=== PATIENT | female | born 1980 | race Caucasian/White ===

== ENCOUNTER 2020-05-12 09:05 | Observation (INO) | payer MEDICAID ==
[2020-05-12] MEDS ORDERED: PREN-96 PO (10:02)
[2020-05-12 10:10] LABS: Basophils # (auto) 0 10 ^3/uL (0-0.2); Basophils % (auto) 0.2 % (0.0-2.0); Eosinophils # (auto) 0.1 10 ^3/uL (0-0.8); Eosinophils % (auto) 0.8 % (0.0-7.0); Hematocrit 33.1 % (36.0-46.0); Hemoglobin 11.3 g/dL (12.2-16.2); Lymphocytes # (auto) 2.3 10 ^3/uL (0.4-5.4); Lymphocytes % (auto) 16.3 % (10.0-50.0); Mean Corpuscular Hemoglobin 32.2 pg (28.0-32.0); Mean Corpuscular Hgb Conc. 34.3 g/dL (32.0-36.0); Mean Corpuscular Volume 93.7 fL (80.0-100.0); Monocytes # (auto) 0.7 10 ^3/uL (0-1.3); Monocytes % (auto) 4.7 % (0.0-12.0); Neutrophils # (auto) 10.9 10 ^3/uL (1.6-8.6); Red Blood Cells 3.53 10^6/uL (4.0-5.20); Red Cell Distribution Width 12.6 % (11.8-14.3); White Blood Cell 13.9 10^3/uL (4.4-10.8)
[2020-05-12 10:24] LABS: INR 0.92 (0.9-1.15); Partial Thromboplastin Time 23.9 sec (23.0-31.2)
[2020-05-12 10:44] LABS: Albumin 2.6 g/dL (3.4-5.0); Calcium 8.1 mg/dL (8.5-10.1); Potassium 3.6 mmol/L (3.5-5.1)
[2020-05-12 10:48] LABS: BUN/Creatinine Ratio 11.6; Bilirubin, Total 0.4 mg/dL (0.2-1.0); Total Protein 6.3 g/dL (6.4-8.2)
[2020-05-12 10:50] LABS: Urine Bacteria FEW /hpf (None Seen); Urine Blood Negative /uL (Negative); Urine Mucus FEW (None Seen); Urine Specific Gravity 1.016 (1.001-1.035); Urine WBC 3 /hpf (0 - 5)
[2020-05-12 11:14] LABS: Protein, Urine 17.4 mg/dL (0.0-11.9)
[2020-05-12 15:35] LABS: Amphetamine Screen, Urine NEGATIVE (NEGATIVE); Barbiturate Scree,Urine NEGATIVE (NEGATIVE); Benzodiazephine Screen, Urine NEGATIVE (NEGATIVE); Cannabinoid Screen, Urine POSITIVE (NEGATIVE); Cocaine Screen, Urine NEGATIVE (NEGATIVE); Opiate Scree,Urine NEGATIVE (NEGATIVE); Phencyclidine Screen, Urine NEGATIVE (NEGATIVE)
== END 2020-05-12 12:22 | disposition home or self-care (01) ==
LOC: LDRP 09:05
PROVIDERS: ADMIT Specialist; ATTEND Specialist
DX: O13.3 Gestational [pregnancy-induced] hypertension without significant proteinuria, third trimester (principal); Z3A.31 31 weeks gestation of pregnancy; Z79.899 Other long term (current) drug therapy
CPT/HCPCS: 36415; 59025; 80053; 80307; 81001; 81002; 82570; 84156; 84550; 85025; 85610; 85730; G0378

== ENCOUNTER 2020-05-14 09:55 | Observation (INO) | payer MEDICAID ==
[~2020-05-14 09:55] MED LIST: PREN-96 PO
[2020-05-14 11:50] LABS: Protein, Urine 12.1 mg/dL (0.0-11.9)
[2020-05-14 12:15] LABS: Creatinine Clearance, Urine 190.87 mL/min (75-115)
== END 2020-05-14 13:15 | disposition home or self-care (01) ==
LOC: LDRP 09:55
PROVIDERS: ADMIT Specialist; ATTEND Specialist
DX: O13.3 Gestational [pregnancy-induced] hypertension without significant proteinuria, third trimester (principal); Z3A.31 31 weeks gestation of pregnancy
CPT/HCPCS: 59025; 76818; 81002; 82575; 84156; G0378

== ENCOUNTER 2020-05-17 09:17 | Observation (INO) | payer MEDICAID | END 2020-05-17 10:55 | disposition home or self-care (01) | LOC: LDRP 09:17 | PROVIDERS: ADMIT Obstetrics & Gynecology; ATTEND Obstetrics & Gynecology | DX: O13.3 Gestational [pregnancy-induced] hypertension without significant proteinuria, third trimester (principal); O24.419 Gestational diabetes mellitus in pregnancy, unspecified control; O99.333 Smoking (tobacco) complicating pregnancy, third trimester; Z3A.31 31 weeks gestation of pregnancy | CPT/HCPCS: 59025; 76818; 81002; G0378 ==

== ENCOUNTER 2020-05-24 08:05 | Observation (INO) | payer MEDICAID | END 2020-05-24 10:00 | disposition home or self-care (01) | LOC: LDRP 08:05 | PROVIDERS: ADMIT Obstetrics & Gynecology; ATTEND Obstetrics & Gynecology | DX: O09.513 Supervision of elderly primigravida, third trimester (principal); O10.013 Pre-existing essential hypertension complicating pregnancy, third trimester; O99.333 Smoking (tobacco) complicating pregnancy, third trimester; F17.200 Nicotine dependence, unspecified, uncomplicated; Z3A.33 33 weeks gestation of pregnancy | CPT/HCPCS: 59025; 76818; 81002; G0378 ==

== ENCOUNTER 2020-05-31 07:46 | Observation (INO) | payer MEDICAID ==
[~2020-05-31] VITALS: Ht 172.7 cm; Wt 81.6 kg
[2020-06-11] MEDS ORDERED: LABETALOL HCL 200 MG TAB PO ONE (12:15)
[2020-06-11] MEDS: TERBUTALINE SULFATE 1 MG/ML 1ML VIAL SC SCH ×3 (12:19→14:20)
[2020-06-11 12:30] LABS: Basophils # (auto) 0 10 ^3/uL (0-0.2); Basophils % (auto) 0.3 % (0.0-2.0); Eosinophils # (auto) 0.1 10 ^3/uL (0-0.8); Eosinophils % (auto) 0.4 % (0.0-7.0); Hematocrit 33.1 % (36.0-46.0); Hemoglobin 11.5 g/dL (12.2-16.2); Lymphocytes % (auto) 15.8 % (10.0-50.0); Mean Corpuscular Hemoglobin 32.4 pg (28.0-32.0); Mean Corpuscular Hgb Conc. 34.7 g/dL (32.0-36.0); Mean Corpuscular Volume 93.4 fL (80.0-100.0); Monocytes # (auto) 0.6 10 ^3/uL (0-1.3); Monocytes % (auto) 4.6 % (0.0-12.0); Neutrophils % (auto) 78.9 % (37.0-80.0); Nucleated Red Blood Cells % 0.2 %; Red Blood Cells 3.55 10^6/uL (4.0-5.20); Red Cell Distribution Width 13.1 % (11.8-14.3); White Blood Cell 12.7 10^3/uL (4.4-10.8)
[2020-06-11 12:34] LABS: Urine Bacteria NONE SEEN /hpf (None Seen); Urine Blood Negative /uL (Negative); Urine Specific Gravity 1.015 (1.001-1.035); Urine WBC 6 /hpf (0 - 5)
[2020-06-11 13:01] LABS: Potassium 3.5 mmol/L (3.5-5.1)
[2020-06-11 13:05] LABS: INR 0.93 (0.9-1.15); Partial Thromboplastin Time 24.2 sec (23.0-31.2)
[2020-06-11 13:07] LABS: Albumin 2.7 g/dL (3.4-5.0); BUN/Creatinine Ratio 17.9; Bilirubin, Total 0.6 mg/dL (0.2-1.0); Calcium 8.4 mg/dL (8.5-10.1); Total Protein 6.4 g/dL (6.4-8.2); Uric Acid 3.4 mg/dL (2.6-6.0)
[2020-06-11 13:18] LABS: Amphetamine Screen, Urine NEGATIVE (NEGATIVE); Barbiturate Scree,Urine NEGATIVE (NEGATIVE); Benzodiazephine Screen, Urine NEGATIVE (NEGATIVE); Cannabinoid Screen, Urine POSITIVE (NEGATIVE); Cocaine Screen, Urine NEGATIVE (NEGATIVE)
[2020-06-11 13:26] LABS: Opiate Scree,Urine NEGATIVE (NEGATIVE); Phencyclidine Screen, Urine NEGATIVE (NEGATIVE)
[2020-06-11] MEDS ORDERED: BETAMETHASONE ACET (30mg/5ml) 5ml Vial 6mg/ml IM ONE (14:30)
[2020-06-11] MEDS ORDERED: NIFEdipine 10 MG CAP PO ONE (15:00)
[2020-06-11] MEDS ORDERED: NIF10C PO (18:12)
[2020-06-11] MEDS ORDERED: LABE100T39 PO (18:13)
[2020-06-12 07:06] LABS: RPR Non Reactive (Non Reactive)
== END 2020-06-11 18:59 | disposition home or self-care (01) ==
LOC: LDRP 06-11 10:21
PROVIDERS: ADMIT Specialist; ATTEND Specialist
DX: O13.3 Gestational [pregnancy-induced] hypertension without significant proteinuria, third trimester (principal); O99.333 Smoking (tobacco) complicating pregnancy, third trimester; F17.200 Nicotine dependence, unspecified, uncomplicated; O99.323 Drug use complicating pregnancy, third trimester; F15.10 Other stimulant abuse, uncomplicated; O09.523 Supervision of elderly multigravida, third trimester; O34.219 Maternal care for unspecified type scar from previous cesarean delivery; Z3A.35 35 weeks gestation of pregnancy
CPT/HCPCS: 36415; 59025; 76805; 76818; 80053; 80307; 81001; 81002; 84550; 85025; 85610; 85730; 86592; 94760; 96360; 96361; 96372; G0378; J0702; J3105

== ENCOUNTER 2020-06-12 16:27 | Observation (INO) | payer MEDICAID ==
[~2020-06-12 16:27] MED LIST changes: +LABE100T39 PO; +NIF10C PO
[2020-06-12] MEDS ORDERED: BETAMETHASONE ACET (30mg/5ml) 5ml Vial 6mg/ml IM ONE (16:45)
== END 2020-06-12 17:55 | disposition home or self-care (01) ==
LOC: LDRP 16:27
PROVIDERS: ADMIT Specialist; ATTEND Specialist
DX: O13.3 Gestational [pregnancy-induced] hypertension without significant proteinuria, third trimester (principal); Z3A.34 34 weeks gestation of pregnancy
CPT/HCPCS: 59025; 81002; 96372; G0378; J0702

== ENCOUNTER 2020-06-13 07:09 | Observation (INO) | payer MEDICAID ==
[~2020-06-13] VITALS: Ht 165.1 cm; Wt 81.6 kg
[2020-06-13 08:18] LABS: Protein, Urine 13.4 mg/dL (0.0-11.9)
[2020-06-13 08:22] LABS: Protein, Urine 13.8 mg/dL (0.0-11.9)
[2020-06-13 08:30] LABS: 24 Hr. Total Protein, Urine 241.2 mg/24 Hr (<149.1)
== END 2020-06-13 08:37 | disposition home or self-care (01) ==
LOC: LDRP 07:09
PROVIDERS: ADMIT Specialist; ATTEND Specialist
DX: O13.3 Gestational [pregnancy-induced] hypertension without significant proteinuria, third trimester (principal); Z3A.35 35 weeks gestation of pregnancy
CPT/HCPCS: 59025; 81002; 82570; 84156; G0378

== ENCOUNTER 2020-06-15 08:20 | Observation (INO) | payer MEDICAID ==
[~2020-06-15] VITALS: Ht 30.5 cm; Wt 0.5 kg
[2020-06-15 10:42] LABS: Basophils # (auto) 0 10 ^3/uL (0-0.2); Basophils % (auto) 0.2 % (0.0-2.0); Eosinophils # (auto) 0.1 10 ^3/uL (0-0.8); Eosinophils % (auto) 0.5 % (0.0-7.0); Hematocrit 30.6 % (36.0-46.0); Hemoglobin 10.5 g/dL (12.2-16.2); Lymphocytes % (auto) 20.4 % (10.0-50.0); Mean Corpuscular Hemoglobin 32.4 pg (28.0-32.0); Mean Corpuscular Hgb Conc. 34.3 g/dL (32.0-36.0); Mean Corpuscular Volume 94.3 fL (80.0-100.0); Monocytes % (auto) 6.7 % (0.0-12.0); Neutrophils # (auto) 10.7 10 ^3/uL (1.6-8.6); Neutrophils % (auto) 72.2 % (37.0-80.0); Platelet Count (auto) 237 10^3/uL (140-450); Red Blood Cells 3.25 10^6/uL (4.0-5.20); White Blood Cell 14.9 10^3/uL (4.4-10.8)
[2020-06-15 10:44] LABS: Urine Bacteria FEW /hpf (None Seen); Urine Blood Negative /uL (Negative); Urine Mucus FEW (None Seen); Urine Specific Gravity 1.028 (1.001-1.035); Urine WBC 44 /hpf (0 - 5)
[2020-06-15 11:02] LABS: Protein, Urine 38.3 mg/dL (0.0-11.9)
[2020-06-15 11:03] LABS: INR 0.95 (0.9-1.15); Partial Thromboplastin Time 23.1 sec (23.0-31.2)
[2020-06-15 11:05] LABS: Albumin 2.5 g/dL (3.4-5.0); BUN/Creatinine Ratio 10.2; Bilirubin, Total 0.4 mg/dL (0.2-1.0); Total Protein 5.8 g/dL (6.4-8.2)
[2020-06-15 11:24] LABS: Potassium 2.9 mmol/L (3.5-5.1)
[2020-06-15] MEDS ORDERED: POTASSIUM CHL 20MEQ/100ML 100 ML IV SCH ×2 (11:45→14:45)
[2020-06-15] MEDS ORDERED: POTASSIUM CHL 20 Meq TABLET PO ONE (11:45)
[2020-06-15] MEDS ORDERED: POTASSIUM CHL 20MEQ/100ML 100 ML IV ONE (15:00)
[2020-06-15] MEDS ORDERED: LABETALOL HCL 200 MG TAB PO ONE (16:03)
== END 2020-06-15 18:10 | disposition home or self-care (01) ==
LOC: LDRP 08:20
PROVIDERS: ADMIT Specialist; ATTEND Specialist
DX: O13.3 Gestational [pregnancy-induced] hypertension without significant proteinuria, third trimester (principal); O99.283 Endocrine, nutritional and metabolic diseases complicating pregnancy, third trimester; E87.6 Hypokalemia; O09.523 Supervision of elderly multigravida, third trimester; O60.03 Preterm labor without delivery, third trimester; Z79.899 Other long term (current) drug therapy; Z3A.36 36 weeks gestation of pregnancy
CPT/HCPCS: 36415; 59025; 76818; 80053; 81001; 81002; 82570; 84132; 84156; 84550; 85025; 85610; 85730; 96365; 96366; G0378; J3480; J7120

== ENCOUNTER 2020-06-18 08:14 | Observation (INO) | payer MEDICAID | END 2020-06-18 09:45 | disposition home or self-care (01) | LOC: LDRP 08:14 | PROVIDERS: ADMIT Obstetrics & Gynecology; ATTEND Obstetrics & Gynecology | DX: O40.3XX0 Polyhydramnios, third trimester, not applicable or unspecified (principal); O13.3 Gestational [pregnancy-induced] hypertension without significant proteinuria, third trimester; O60.03 Preterm labor without delivery, third trimester; O99.333 Smoking (tobacco) complicating pregnancy, third trimester; F17.200 Nicotine dependence, unspecified, uncomplicated; O99.323 Drug use complicating pregnancy, third trimester; F12.90 Cannabis use, unspecified, uncomplicated; Z3A.36 36 weeks gestation of pregnancy | CPT/HCPCS: 59025; 76818; 81002; 94760; G0378 ==

== ENCOUNTER 2020-06-21 08:19 | Observation (INO) | payer MEDICAID | END 2020-06-21 09:53 | disposition home or self-care (01) | LOC: LDRP 08:19 | PROVIDERS: ADMIT Specialist; ATTEND Specialist | DX: O13.3 Gestational [pregnancy-induced] hypertension without significant proteinuria, third trimester (principal); O09.523 Supervision of elderly multigravida, third trimester; Z3A.37 37 weeks gestation of pregnancy | CPT/HCPCS: 59025; 76818; 81002; G0378 ==

== ENCOUNTER 2020-06-24 08:10 | Observation (INO) | payer MEDICAID | END 2020-06-24 10:08 | disposition home or self-care (01) | LOC: LDRP 08:10 | PROVIDERS: ADMIT Specialist; ATTEND Specialist | DX: O14.93 Unspecified pre-eclampsia, third trimester (principal); O09.523 Supervision of elderly multigravida, third trimester; Z3A.37 37 weeks gestation of pregnancy | CPT/HCPCS: 59025; 76818; 81002; G0378 ==

== ENCOUNTER 2020-06-26 08:02 | Observation (INO) | payer MEDICAID | END 2020-06-26 09:15 | disposition home or self-care (01) | LOC: LDRP 08:02 | PROVIDERS: ADMIT Obstetrics & Gynecology; ATTEND Obstetrics & Gynecology | DX: O13.3 Gestational [pregnancy-induced] hypertension without significant proteinuria, third trimester (principal); O40.3XX0 Polyhydramnios, third trimester, not applicable or unspecified; O99.333 Smoking (tobacco) complicating pregnancy, third trimester; F17.210 Nicotine dependence, cigarettes, uncomplicated; O99.323 Drug use complicating pregnancy, third trimester; F12.90 Cannabis use, unspecified, uncomplicated; O99.313 Alcohol use complicating pregnancy, third trimester; Z72.89 Other problems related to lifestyle; Z3A.37 37 weeks gestation of pregnancy | CPT/HCPCS: 59025; 81002; G0378 ==

== ENCOUNTER 2020-06-28 08:05 | Observation (INO) | payer MEDICAID | END 2020-06-28 09:43 | disposition home or self-care (01) | LOC: LDRP 08:05 | PROVIDERS: ADMIT Specialist; ATTEND Specialist | DX: O14.93 Unspecified pre-eclampsia, third trimester (principal); O13.3 Gestational [pregnancy-induced] hypertension without significant proteinuria, third trimester; O99.333 Smoking (tobacco) complicating pregnancy, third trimester; F17.210 Nicotine dependence, cigarettes, uncomplicated; O99.323 Drug use complicating pregnancy, third trimester; F12.90 Cannabis use, unspecified, uncomplicated; O99.313 Alcohol use complicating pregnancy, third trimester; Z72.89 Other problems related to lifestyle; Z3A.38 38 weeks gestation of pregnancy | CPT/HCPCS: 59025; 76818; 81002; G0378 ==

== ENCOUNTER 2020-07-01 08:05 | Observation (INO) | payer MEDICAID | END 2020-07-01 10:15 | disposition home or self-care (01) | LOC: LDRP 08:05 | PROVIDERS: ADMIT Obstetrics & Gynecology; ATTEND Obstetrics & Gynecology | DX: O13.3 Gestational [pregnancy-induced] hypertension without significant proteinuria, third trimester (principal); O99.333 Smoking (tobacco) complicating pregnancy, third trimester; F17.200 Nicotine dependence, unspecified, uncomplicated; Z3A.38 38 weeks gestation of pregnancy | CPT/HCPCS: 59025; 76818; 81002; G0378 ==

== ENCOUNTER 2020-07-03 10:15 | Inpatient (IN) | payer MEDICAID ==
[~2020-07-03] VITALS: Ht 177.8 cm; Wt 82.1 kg
[2020-07-05] VITALS (15 sets, daily range): BP systolic 111–153; BP diastolic 75–99
[2020-07-05] MEDS ORDERED: LACTATED RINGER'S 1,000 ML IV ONE (06:45)
[2020-07-05] MEDS ORDERED: ceFAZolin 1GM/50ML 50 ML IV ONE (06:45)
[2020-07-05 08:00] LABS: Basophils # (auto) 0 10 ^3/uL (0-0.2); Basophils % (auto) 0.4 % (0.0-2.0); Eosinophils # (auto) 0.1 10 ^3/uL (0-0.8); Eosinophils % (auto) 0.9 % (0.0-7.0); Hematocrit 30.8 % (36.0-46.0); Hemoglobin 11.1 g/dL (12.2-16.2); Lymphocytes # (auto) 2.6 10 ^3/uL (0.4-5.4); Mean Corpuscular Hemoglobin 33.1 pg (28.0-32.0); Mean Corpuscular Hgb Conc. 35.9 g/dL (32.0-36.0); Mean Corpuscular Volume 92.2 fL (80.0-100.0); Monocytes # (auto) 0.5 10 ^3/uL (0-1.3); Monocytes % (auto) 4.4 % (0.0-12.0); Neutrophils # (auto) 8.6 10 ^3/uL (1.6-8.6); Neutrophils % (auto) 72.3 % (37.0-80.0); Nucleated Red Blood Cells % 0.1 %; Platelet Count (auto) 212 10^3/uL (140-450); Red Blood Cells 3.34 10^6/uL (4.0-5.20); Urine Bacteria FEW /hpf (None Seen); Urine Blood Negative /uL (Negative); Urine Mucus FEW (None Seen); Urine Specific Gravity 1.015 (1.001-1.035); Urine WBC 34 /hpf (0 - 5); White Blood Cell 11.9 10^3/uL (4.4-10.8)
[2020-07-05 08:15] LABS: Albumin 2.6 g/dL (3.4-5.0); BUN/Creatinine Ratio 12.5; Calcium 7.9 mg/dL (8.5-10.1); Potassium 3.2 mmol/L (3.5-5.1)
[2020-07-05 08:17] LABS: Bilirubin, Total 0.5 mg/dL (0.2-1.0)
[2020-07-05 08:19] LABS: INR 0.9 (0.9-1.15); Partial Thromboplastin Time 25.5 sec (23.0-31.2)
[2020-07-05 08:22] LABS: Alcohol, Urine < 3.0 mg/dL (0-10); Amphetamine Screen, Urine NEGATIVE (NEGATIVE); Barbiturate Scree,Urine NEGATIVE (NEGATIVE); Benzodiazephine Screen, Urine NEGATIVE (NEGATIVE); Cannabinoid Screen, Urine POSITIVE (NEGATIVE); Cocaine Screen, Urine NEGATIVE (NEGATIVE); Phencyclidine Screen, Urine NEGATIVE (NEGATIVE)
[2020-07-05] MEDS: LACTATED RINGER'S 1,000 ML IV SCH ×4 (08:27→23:29)
[2020-07-05 08:28] LABS: Opiate Scree,Urine NEGATIVE (NEGATIVE)
[2020-07-05] MEDS ORDERED: EPINEPHrine HCL 1 MG/1 ML AMP ONE (11:31)
[2020-07-05] MEDS ORDERED: TETRACAINE 1% INJ 2 ML VIAL IJ ONE (11:31)
[2020-07-05] MEDS ORDERED: MORPHINE SULF(PF) 0.5MG/ML 10ML VIAL ONE (11:34)
[2020-07-05] MEDS ORDERED: MIDAZOLAM HCL 1MG/1ML-2 ML VIAL ONE (11:34)
[2020-07-05] MEDS ORDERED: fentaNYL CITRATE 100 MCG/2 ML VL ONE (11:34)
[2020-07-05] MEDS ORDERED: oxyTOCIN 10 UNIT/ML 10ML VIAL ONE (11:35)
[2020-07-05] MEDS ORDERED: SODIUM CHLORIDE LOCK 10 ML ONE (11:35)
[2020-07-05] MEDS ORDERED: ONDANSETRON HCL 4 MG/2 ML VIAL ONE (11:35)
[2020-07-05] MEDS ORDERED: BUPIVACAINE 0.5% P/F INJ 10 ML VIAL ONE (11:35)
[2020-07-05] MEDS ORDERED: KETOROLAC TROMETH 30 MG/ML 1ML VIAL IV PRN (13:45)
[2020-07-05] MEDS ORDERED: GUM (CHEWING) 1 GUM CHEW CHEW ONE (13:45)
[2020-07-05] MEDS ORDERED: ceFAZolin 1GM/50ML 50 ML IV SCH (13:45)
[2020-07-05] MEDS ORDERED: ONDANSETRON HCL 4 MG/2 ML VIAL IV PRN (13:45)
[2020-07-05] MEDS ORDERED: HYDROmorphone HCL 2 MG/ML VL IV PRN ×2 (13:45→14:00)
[2020-07-05] MEDS ORDERED: LACTATED RINGER'S 1,000 ML IV SCH (13:45)
[2020-07-05] MEDS ORDERED: NALOXONE HCL 0.4 MG/ML VIAL IV PRN (14:00)
[2020-07-05] MEDS ORDERED: METOCLOPRAMIDE HCL 5MG/ml INJ 2ml VIAL IV PRN (14:00)
[2020-07-05] MEDS ORDERED: diphenhdrAMINE HCL 50 MG/1 ML VL IV PRN (14:00)
[2020-07-05] MEDS ORDERED: MORPHINE SULFATE 4 MG/ML SYR/VIAL IV PRN (14:00)
[2020-07-05] MEDS ORDERED: KETOROLAC TROMETH 30 MG/ML 1ML VIAL IV ONE (14:00)
[2020-07-05] MEDS: ceFAZolin 1GM/50ML 50 ML IV SCH (19:49)
[2020-07-05] MEDS ORDERED: ACETAMINOPHEN IV 1000 MG/100ML (10MG/ML) IV ONE (23:45)
[2020-07-06] VITALS (12 sets, daily range): BP systolic 106–144; BP diastolic 66–80
[2020-07-06] MEDS ORDERED: HYDR-4902 PO (02:23)
[2020-07-06] MEDS: ceFAZolin 1GM/50ML 50 ML IV SCH ×2 (03:50→11:59)
[2020-07-06 07:03] LABS: Basophils # (auto) 0 10 ^3/uL (0-0.2); Basophils % (auto) 0.2 % (0.0-2.0); Eosinophils # (auto) 0 10 ^3/uL (0-0.8); Eosinophils % (auto) 0.2 % (0.0-7.0); Hematocrit 24.3 % (36.0-46.0); Hemoglobin 8.6 g/dL (12.2-16.2); Lymphocytes % (auto) 19.7 % (10.0-50.0); Mean Corpuscular Hemoglobin 33.1 pg (28.0-32.0); Mean Corpuscular Hgb Conc. 35.6 g/dL (32.0-36.0); Mean Corpuscular Volume 92.8 fL (80.0-100.0); Monocytes # (auto) 0.7 10 ^3/uL (0-1.3); Neutrophils # (auto) 11.3 10 ^3/uL (1.6-8.6); Neutrophils % (auto) 74.9 % (37.0-80.0); Platelet Count (auto) 198 10^3/uL (140-450); Red Blood Cells 2.62 10^6/uL (4.0-5.20); Red Cell Distribution Width 12.9 % (11.8-14.3); White Blood Cell 15.1 10^3/uL (4.4-10.8)
[2020-07-06] MEDS ORDERED: BISACODYL 10 MG RECT SUPP PR PRN (10:30)
[2020-07-06] MEDS ORDERED: HYDROcodone-ACET 5/325MG TAB PO PRN (10:30)
[2020-07-06] MEDS: SIMETHICONE 80 MG CHEWABLE TABLET PO SCH ×3 (11:58→22:11)
[2020-07-06] MEDS: IBUPROFEN 800 MG TAB PO PRN ×2 (12:35→21:08)
[2020-07-06] MEDS: HYDROcodone-ACET 5/325MG TAB PO PRN ×2 (17:48→22:13)
[2020-07-06] MEDS: DOCUSATE SOD 100 MG CAP PO SCH (22:11)
[2020-07-07] MEDS: HYDROcodone-ACET 5/325MG TAB PO PRN ×4 (03:12→23:44)
[2020-07-07 03:14] VITALS: BP 119/76
[2020-07-07] MEDS: IBUPROFEN 800 MG TAB PO PRN ×3 (05:08→21:53)
[2020-07-07 06:56] VITALS: BP 137/77
[2020-07-07] MEDS: SIMETHICONE 80 MG CHEWABLE TABLET PO SCH ×4 (07:03→21:47)
[2020-07-07 07:07] LABS: RPR Non Reactive (Non Reactive)
[2020-07-07] MEDS: DOCUSATE CALCIUM 240 MG CAP PO SCH (10:03)
[2020-07-07] MEDS: DOCUSATE SOD 100 MG CAP PO SCH ×2 (10:03→21:47)
[2020-07-07 11:15] VITALS: BP 122/70
[2020-07-07 15:26] VITALS: BP 131/83
[2020-07-07 18:40] VITALS: BP 140/95
[2020-07-07 23:30] VITALS: BP 120/63
[2020-07-08 02:49] VITALS: BP 115/69
[2020-07-08] MEDS: SIMETHICONE 80 MG CHEWABLE TABLET PO SCH (05:34)
[2020-07-08 07:30] VITALS: BP 127/79
[2020-07-08] MEDS: IBUPROFEN 800 MG TAB PO PRN (07:32)
[2020-07-08] MEDS: DOCUSATE SOD 100 MG CAP PO SCH (09:44)
[2020-07-08] MEDS: DOCUSATE CALCIUM 240 MG CAP PO SCH (09:44)
[2020-07-08 10:30] VITALS: BP 129/75
[2020-07-08 11:10] VITALS: BP 129/75
== END 2020-07-08 11:10 | disposition home or self-care (01) | DRG 540 ==
LOC: OP 10:15 → LDRP 07-05 06:30
PROVIDERS: ADMIT Specialist; ATTEND Specialist
PROC: 0UL70CZ Occlusion of Bilateral Fallopian Tubes with Extraluminal Device, Open Approach (ICD-10-PCS; 2020-07-05)
PROC: 10D00Z1 Extraction of Products of Conception, Low, Open Approach (ICD-10-PCS; principal; 2020-07-05 12:14)
DX: O34.211 Maternal care for low transverse scar from previous cesarean delivery (principal); R71.0 Precipitous drop in hematocrit; E87.6 Hypokalemia; O90.81 Anemia of the puerperium; O13.4 Gestational [pregnancy-induced] hypertension without significant proteinuria, complicating childbirth; Z20.822 Contact with and (suspected) exposure to COVID-19; O99.284 Endocrine, nutritional and metabolic diseases complicating childbirth; Z37.0 Single live birth; Z30.2 Encounter for sterilization; Z3A.39 39 weeks gestation of pregnancy; O09.523 Supervision of elderly multigravida, third trimester
CPT/HCPCS: 36415; 59025; 80053; 80307; 81001; 84132; 85025; 85610; 85730; 86592; 86850; 86900; 86901; 94762; 96360; 96361; 96374; G0378; J0131; J0171; J0690; J1885; J2250; J2405; J2590; J3490